=== PATIENT | female | born 1960 | race Caucasian/White ===

== ENCOUNTER → 2018-04-14 | Outpatient (CLI) | payer OTHER | END | disposition home or self-care (01) | LOC: KCIC US 14:45 | DX: R22.32 Localized swelling, mass and lump, left upper limb (principal) | CPT/HCPCS: 76881 ==

== ENCOUNTER → 2018-12-15 | Outpatient (CLI) | payer OTHER ==
[~2018-12-15] MED LIST: CLOB15CR TP; FLUO15CR TP; MELO15TA23 PO; METR70GE2 VG; PHEN15CA2 PO
--- NOTE | 2018-12-15 13:43 | RAD ---
Left upper extremity arterial Doppler December 15, 2018 INDICATION: Left fourth digit is blue and discolored. COMPARISON: None available TECHNIQUE: Sonographic evaluation of the left upper extremity arterial system was performed utilizing grayscale, color Doppler and spectral waveform analysis. FINDINGS: Left upper extremity peak systolic velocities (cm per second) Subclavian artery: 149 cm/s Distal subclavian: 168 cm/s Axillary: 131 cm/s Brachial, proximal: 151 cm/s Brachial, mid: 142 cm/s Brachial, distal: 160 cm/s Radial, proximal: 108 cm/s Radial distal colon 105 cm/s Ulnar proximal: 85 cm/s Ulnar distal: 99 cm/s Triphasic waveforms are identified throughout. No significant stenosis. IMPRESSION: No evidence for left upper extremity arterial high-grade stenosis or occlusion. Electronically signed by: Olive Brown MD (12/15/2018 1:40 PM) [id number]
== END | disposition home or self-care (01) ==
LOC: US 12:08
PROVIDERS: ATTEND Family Medicine
DX: R60.0 Localized edema (principal); R23.8 Other skin changes
CPT/HCPCS: 93931